=== PATIENT | female | born 1995 | race African-American/Black ===

== ENCOUNTER 2016-09-23 14:29 | Emergency (ER) | payer OTHER ==
[2016-09-23 14:40] VITALS: BP 119/66
== END 2016-09-23 15:44 | disposition left against medical advice (07) ==
LOC: ED 14:29
DX: R51 Headache (principal); Z53.20 Procedure and treatment not carried out because of patient's decision for unspecified reasons
CPT/HCPCS: 99281

== ENCOUNTER → 2016-09-23 16:00 | Emergency (ER) | payer OTHER ==
[~2016-09-23 16:00] MED LIST: Ketorolac INJ* 60 MG/2 ML VIAL IM ONE; Prochlorperazine TAB* 10 MG PO ONE
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
[2016-09-23 20:42] VITALS: BP 111/69
== END | disposition home or self-care (01) ==
LOC: ED 16:00
DX: G44.209 Tension-type headache, unspecified, not intractable (principal); J45.909 Unspecified asthma, uncomplicated
CPT/HCPCS: 96372; 99281; J1885; Q0164

== ENCOUNTER → 2016-10-12 15:39 | Emergency (ER) | payer OTHER ==
[2016-10-12 16:42] LABS: Hematocrit 39 % (35-47); Hemoglobin 12.6 g/dl (12.0-16.0); Mean Corpuscular HGB Conc 32 g/dl (31-36); Mean Corpuscular Hemoglobin 28 pg (27-31); Mean Corpuscular Volume 87 fL (80-97); Mean Platelet Volume 8 um3 (7.4-10.4); Red Blood Count 4.47 10^6/ul (4.0-5.4); Red Cell Distribution Width 14 % (10.5-15)
[2016-10-12 16:58] LABS: Albumin 3.8 g/dL (3.2-5.2); BUN/Creatinine Ratio 18.5 (8-20); Calcium 9.4 mg/dL (8.6-10.3); EGFR African American 113.7 (>60); EGFR Non-African American 88.4 (>60); Globulin 3.4 g/dL (2-4); Potassium 3.6 mmol/L (3.5-5.0); Total Bilirubin 0.3 mg/dL (0.2-1.0); Total Protein 7.2 g/dL (6.4-8.9)
[2016-10-12 17:38] LABS: Urine Bilirubin Negative (Negative); Urine Glucose Negative (Negative); Urine Nitrite Negative (Negative)
[2016-10-12 17:53] LABS: BHCG Quantitative with Reflex 854.3 MIU/ML (0.0-5.0)
[2016-10-12 18:20] LABS: TSH (Thyroid Stimulating Horm) 1.5 mcIU/mL (0.34-5.60)
[2016-10-12 18:33] VITALS: BP 116/55
--- NOTE | 2016-10-12 21:20 | ED ---
Fox Sage Billy, scribed for Gregory Singer MD on 10/12/16 at 1616 . - HPI Summary HPI Summary: Patient is a 21 year-old female coming to [facility] for evaluation of a possible ectopic sent from the [facility], where she had an ultrasound. LMP 09/10/16. A1. No vaginal bleeding or discharge. - History of Current Complaint Chief Complaint: EDUrogenitalProblems Stated Complaint: R/O ECTOPIC Time Seen by Provider: 10/12/16 16:05 Hx Obtained From: Patient Chief Complaint: Other: - Rule out ectopic Timing: Constant Current Severity: None Pain Intensity: 0 Location of Pain: None Character: None Aggravating Factors: Nothing Alleviating Factors: Nothing Associated Signs and Symptoms: Positive: Negative - Allergies/Home Medications Allergies/Adverse Reactions: Allergies Allergy/AdvReac Type Severity Reaction Status Date / Time No Known Allergies Allergy Verified 10/20/15 21:35 PMH/Surg Hx/FS Hx/Imm Hx Endocrine/Hematology History: Denies: Hx Diabetes Cardiovascular History: Denies: Hx Congestive Heart Failure, Hx Hypertension Respiratory History: Reports: Hx Asthma - asthma Infectious Disease History: No Infectious Disease History: Denies: Traveled Outside the [place] in Last 30 Days - Family History Known Family History: Positive: Diabetes - Social History Alcohol Use: Occasionally Hx Substance Use: No Substance Use Type: Reports: None Hx Tobacco Use: No Smoking Status (MU): Never Smoked Tobacco Review of Systems Negative: Fever Negative: Abdominal Pain Negative: discharge All Other Systems Reviewed And Are Negative: Yes Physical Exam - Summary Physical Exam Summary: VITAL SIGNS: Reviewed. GENERAL: Patient is a well-developed and nourished (MALE OR FEMALE) who is lying comfortable in the stretcher. Patient is not in any acute respiratory distress. HEAD AND FACE: No signs of trauma. No ecchymosis, hematomas or skull depressions. No sinus tenderness. EYES: PERRLA, EOMI x 2, No injected conjunctiva, no nystagmus. EARS: Hearing grossly intact. Ear canals and tympanic membranes are within normal limits. MOUTH: Oropharynx within normal limits. NECK: Supple, trachea is midline, no adenopathy, no JVD, no carotid bruit, no c- spine tenderness, neck with full ROM. CHEST: Symmetric, no tenderness at palpation LUNGS: Clear to auscultation bilaterally. No wheezing or crackles. CVS: Regular rate and rhythm, S1 and S2 present, no murmurs or gallops appreciated. ABDOMEN: Soft, non-tender. No signs of distention. No rebound no guarding, and no masses palpated. Bowel sounds are normal. EXTREMITIES: FROM in all major joints, no edema, no cyanosis or clubbing. NEURO: Alert and oriented x 3. No acute neurological deficits. Speech is normal and follows commands. SKIN: Dry and warm - Physical Exam Triage Information Reviewed: Yes Vital Signs On Initial Exam: Initial Vital Signs Temp 97.9 F 10/12/16 15:41 Pulse 87 10/12/16 15:41 Resp 20 10/12/16 15:41 BP 132/59 10/12/16 15:41 Pulse Ox 100 10/12/16 15:41 Vital Signs Reviewed: Yes Diagnostics - Vital Signs Vital Signs Temp Pulse Resp BP Pulse Ox 10/12/16 15:43 97.9 F 95 20 132/59 100 10/12/16 15:41 97.9 F 87 20 132/59 100 - Laboratory Result Diagrams: 10/12/16 16:32 10/12/16 16:32 Lab Statement: Any lab studies that have been ordered have been reviewed, and results considered in the medical decision making process. Re-Evaluation - Re-Evaluation First Eval Re-Evaluation Time: 18:23 Comment: Labs reviewed. Course/Dx - Course Assessment/Plan: Patient is a 21 year-old female coming to [facility] for evaluation of a possible ectopic sent from the [facility], where she had an ultrasound. LMP 09/10/16. A1. No vaginal bleeding or discharge. Test results WNL except for bHCG of 854. UA is negative for UTI. In the ED course, the patient remains stable without any complaints. She has no abdominal or pelvic pain, denies vaginal bleeding or discharge. So I have a very low suspicion for an ectopic with such a low bHCG. I discussed the case with Dr. Braden who also agrees that the patient can be discharged home to follow up in his office in the next 2 days. The patient was given instructions to return to the ED if she developed abdominal pain or vaginal bleeding. She is hemodynamically stable, A&Ox3. - Diagnoses Provider Diagnoses: - Provider Notifications Discussed Care Of Patient With: Dr. Braden (CLINICAL TRIAL DATA MANAGER) at 1810: recommends discharge home. Discharge - Discharge Plan Condition: Stable Disposition: HOME Patient Education Materials: (ED) Referrals: Delvis Dumont MD [Primary Care Provider] - Jordan Braden MD [Medical Doctor] - Additional Instructions: FOLLOW UP WITH DR. BRADEN (CLINICAL TRIAL DATA MANAGER) IN TWO DAYS. The documentation as recorded by the Fox james Billy accurately reflects the service I personally performed and the decisions made by , Grgeory Singer MD.
== END | disposition home or self-care (01) ==
LOC: ED 15:39
DX: Z34.90 Encounter for supervision of normal pregnancy, unspecified, unspecified trimester (principal)
CPT/HCPCS: 36415; 80053; 81003; 83690; 84443; 84702; 85025; 99282

== ENCOUNTER 2016-12-14 12:22 | Emergency (ER) | payer OTHER ==
[2016-12-14] MEDS ORDERED: NS 0.9% 1000 ML* 1,000 ML IV ONE (13:48)
[2016-12-14 14:20] LABS: Hematocrit 39 % (35-47); Hemoglobin 12.7 g/dl (12.0-16.0); Mean Corpuscular HGB Conc 33 g/dl (31-36); Mean Corpuscular Hemoglobin 29 pg (27-31); Mean Corpuscular Volume 90 fL (80-97); Mean Platelet Volume 8 um3 (7.4-10.4); Red Blood Count 4.36 10^6/ul (4.0-5.4); Red Cell Distribution Width 14 % (10.5-15); White Blood Count 9.4 10^3/ul (3.5-10.8)
[2016-12-14 14:22] LABS: Urine Bilirubin Negative (Negative); Urine Glucose Negative (Negative); Urine Nitrite Negative (Negative)
[2016-12-14 14:34] LABS: Albumin 3.8 g/dL (3.2-5.2); BUN/Creatinine Ratio 12.1 (8-20); C Reactive Protein 11.3 mg/L (< 5.00); Calcium 9.4 mg/dL (8.6-10.3); Globulin 3.8 g/dL (2-4); Potassium 3.6 mmol/L (3.5-5.0); Total Bilirubin 0.3 mg/dL (0.2-1.0); Total Protein 7.6 g/dL (6.4-8.9)
--- NOTE | 2016-12-14 15:06 | RAD ---
Indication: 13 weeks 4 days based on September 10, 2016 LMP Comparison: No relevant prior exams available on the [facility] PACS for comparison. Technique: Transabdominal obstetrical ultrasound. Report: Single intrauterine gestation with visualized movement and cardiac activity with heart rate measuring 147 bpm. Unremarkable placenta and qualitatively normal amniotic fluid volume. No perigestational hemorrhage evident. Unremarkable 2.5 x 1.6 x 1.7 cm RIGHT ovary. The LEFT ovary could not be visualized. No extraovarian adnexal region lesions evident. IMPRESSION: Normal-appearing IUP with AUA 13 weeks 6 days based on this exam. Ultrasound SYD June 15, 2017.
--- NOTE | 2016-12-14 15:25 | RAD ---
INDICATION: Right lower quadrant pain. COMPARISON: There are no prior studies available for comparison. TECHNIQUE: Multiple real-time images of the right lower quadrant were obtained using a graded compression technique. FINDINGS: No free intraperitoneal fluid or localized fluid collections are seen. The appendix was not visualized limiting the study. IMPRESSION: THE APPENDIX WAS NOT VISUALIZED LIMITING THE STUDY, RECOMMEND CLINICAL CORRELATION AND CONSIDER A MRI OF THE ABDOMEN AND PELVIS WITHOUT CONTRAST FOR FURTHER EVALUATION.
--- NOTE | 2016-12-14 16:25 | ED ---
Gregory Sage Auryana, scribed for David Jimenez MD on 12/14/16 at 1407 . Abdominal Pain/Female - HPI Summary HPI Summary: 21 year old female presents with abdominal pain starting last night worse since this morning. The pain is constant, located in the central abdomen, and is made worse by palpation, unchanged with food intake. She reports that the pain can become a sharp pain (9/10), but currently she reports that the pain is "just uncomfortable". She also reports a decreased appetite and slight vaginal discharge - seen at [facility] office yesterday - reports normal per exam. She denies any back pain or any burning/pain with urination. Normal BMs per patient. She reports recent stress and is concerned with the health of her baby - 13 weeks , due date 06/17/17 with LMP 09/10/16. PMHx is significant for asthma. - History of Current Complaint Chief Complaint: EDAbdPain Stated Complaint: ABD PAIN/13 WEEKS Time Seen by Provider: 12/14/16 13:32 Hx Obtained From: Patient Hx Last Menstrual Period: 09/10/16 ?: Yes Onset/Duration: Gradual Onset, Lasting Hours - last night, Still Present Timing: Constant Severity Initially: Mild Severity Currently: Mild Pain Intensity: 4 Pain Scale Used: 0-10 Numeric Location: Other - central abd Radiates: No Character: Sharp - can become, Other: - reports "uncomfortable" Aggravating Factor(s): Other: - palpation Associated Signs and Symptoms: Positive: Decreased Appetite, Vaginal Discharge. Negative: Fever, Back Pain, Constipation, Urinary Symptoms, Vaginal Bleeding Allergies/Adverse Reactions: Allergies Allergy/AdvReac Type Severity Reaction Status Date / Time No Known Allergies Allergy Verified 10/20/15 21:35 PMH/Surg Hx/FS Hx/Imm Hx Endocrine/Hematology History: Denies: Hx Diabetes Cardiovascular History: Denies: Hx Congestive Heart Failure, Hx Hypertension Respiratory History: Reports: Hx Asthma - asthma Infectious Disease History: Denies: Traveled Outside the [place] in Last 30 Days - Family History Known Family History: Positive: Diabetes - Social History Alcohol Use: Occasionally Hx Substance Use: No Substance Use Type: Reports: None Hx Tobacco Use: No Smoking Status (MU): Never Smoked Tobacco Review of Systems Constitutional: Negative Negative: Fever Eyes: Negative ENT: Negative Cardiovascular: Negative Respiratory: Negative Positive: Abdominal Pain, Other - decreased appetite Positive: discharge - vaginal . Negative: burning, pain Musculoskeletal: Negative Negative: Other - no back pain Skin: Negative Neurological: Negative Psychological: Normal All Other Systems Reviewed And Are Negative: Yes Physical Exam - Summary Physical Exam Summary: General: well-appearing, no acute pain distress Skin: warm, color reflects adequate perfusion, dry Head: normal Eyes: EOMI, RICCO ENT: normal Neck: supple, nontender Respiratory: CTA, breath sounds present Cardiovascular: RRR Abdomen: soft, mild suprapubic tenderness Bowel: present Musculoskeletal: normal, strength/ROM intact Neurological: normal, sensory/motor intact, A&O x3 Psychological: affect/mood appropriate Triage Information Reviewed: Yes Vital Signs On Initial Exam: Initial Vitals Temp Pulse Resp BP Pulse Ox 97.8 F 92 20 115/59 99 12/14/16 12:24 12/14/16 12:24 12/14/16 12:24 12/14/16 12:24 12/14/16 12:24 Vital Signs Reviewed: Yes Diagnostics - Vital Signs Vital Signs Temp Pulse Resp BP Pulse Ox 12/14/16 12:24 97.8 F 92 20 115/59 99 - Laboratory Lab Results: Lab Results 12/14/16 12/14/16 12/14/16 Range/Units 14:05 14:05 14:05 WBC 9.4 (3.5-10.8) 10^3/ul RBC 4.36 (4.0-5.4) 10^6/ul Hgb 12.7 (12.0-16.0) g/dl Hct 39 (35-47) % MCV 90 (80-97) fL MCH 29 (27-31) pg MCHC 33 (31-36) g/dl RDW 14 (10.5-15) % Plt Count 276 (150-450) 10^3/ul MPV 8 (7.4-10.4) um3 Neut % (Auto) 70.7 (38-83) % Lymph % (Auto) 20.5 L (25-47) % [place] % (Auto) 6.6 (1-9) % Eos % (Auto) 1.9 (0-6) % Baso % (Auto) 0.3 (0-2) % Absolute Neuts (auto) 6.7 (1.5-7.7) 10^3/ul Absolute Lymphs (auto) 1.9 (1.0-4.8) 10^3/ul Absolute Monos (auto) 0.6 (0-0.8) 10^3/ul Absolute Eos (auto) 0.2 (0-0.6) 10^3/ul Absolute Basos (auto) 0 (0-0.2) 10^3/ul Absolute Nucleated RBC 0 10^3/ul Nucleated RBC % 0 Sodium 133 (133-145) mmol/L Potassium 3.6 (3.5-5.0) mmol/L Chloride 104 (101-111) mmol/L Carbon Dioxide 22 (22-32) mmol/L Anion Gap 7 (2-11) mmol/L BUN 8 (6-24) mg/dL Creatinine 0.66 (0.51-0.95) mg/dL Est GFR ( Amer) 144.0 (>60) Est GFR (Non-Af Amer) 112.0 (>60) BUN/Creatinine Ratio 12.1 (8-20) Glucose 85 (70-100) mg/dL Lactic Acid 0.8 (0.5-2.0) mmol/L Calcium 9.4 (8.6-10.3) mg/dL Total Bilirubin 0.30 (0.2-1.0) mg/dL AST 12 L (13-39) U/L ALT 10 (7-52) U/L Alkaline Phosphatase 41 (34-104) U/L C-Reactive Protein 11.30 H (< 5.00) mg/L Total Protein 7.6 (6.4-8.9) g/dL Albumin 3.8 (3.2-5.2) g/dL Globulin 3.8 (2-4) g/dL Albumin/Globulin Ratio 1.0 (1-3) Lipase 14 (11.0-82.0) U/L Beta HCG, Quant 75850.00 mIU/mL Urine Color Urine Appearance Urine pH (5-9) Ur Specific [place] (1.010-1.030) Urine Protein (Negative) Urine Ketones (Negative) Urine Blood (Negative) Urine Nitrate (Negative) Urine Bilirubin (Negative) Urine Urobilinogen (Negative) Ur Leukocyte Esterase (Negative) Urine Glucose (Negative) Urine Ascorbic Acid (Negative) 12/14/16 Range/Units 14:05 WBC (3.5-10.8) 10^3/ul RBC (4.0-5.4) 10^6/ul Hgb (12.0-16.0) g/dl Hct (35-47) % MCV (80-97) fL MCH (27-31) pg MCHC (31-36) g/dl RDW (10.5-15) % Plt Count (150-450) 10^3/ul MPV (7.4-10.4) um3 Neut % (Auto) (38-83) % Lymph % (Auto) (25-47) % [place] % (Auto) (1-9) % Eos % (Auto) (0-6) % Baso % (Auto) (0-2) % Absolute Neuts (auto) (1.5-7.7) 10^3/ul Absolute Lymphs (auto) (1.0-4.8) 10^3/ul Absolute Monos (auto) (0-0.8) 10^3/ul Absolute Eos (auto) (0-0.6) 10^3/ul Absolute Basos (auto) (0-0.2) 10^3/ul Absolute Nucleated RBC 10^3/ul Nucleated RBC % Sodium (133-145) mmol/L Potassium (3.5-5.0) mmol/L Chloride (101-111) mmol/L Carbon Dioxide (22-32) mmol/L Anion Gap (2-11) mmol/L BUN (6-24) mg/dL Creatinine (0.51-0.95) mg/dL Est GFR ( Amer) (>60) Est GFR (Non-Af Amer) (>60) BUN/Creatinine Ratio (8-20) Glucose (70-100) mg/dL Lactic Acid (0.5-2.0) mmol/L Calcium (8.6-10.3) mg/dL Total Bilirubin (0.2-1.0) mg/dL AST (13-39) U/L ALT (7-52) U/L Alkaline Phosphatase (34-104) U/L C-Reactive Protein (< 5.00) mg/L Total Protein (6.4-8.9) g/dL Albumin (3.2-5.2) g/dL Globulin (2-4) g/dL Albumin/Globulin Ratio (1-3) Lipase (11.0-82.0) U/L Beta HCG, Quant mIU/mL Urine Color Yellow Urine Appearance Clear Urine pH 7.0 (5-9) Ur Specific [place] 1.012 (1.010-1.030) Urine Protein Negative (Negative) Urine Ketones Trace H (Negative) Urine Blood Negative (Negative) Urine Nitrate Negative (Negative) Urine Bilirubin Negative (Negative) Urine Urobilinogen Negative (Negative) Ur Leukocyte Esterase Negative (Negative) Urine Glucose Negative (Negative) Urine Ascorbic Acid * H (Negative) Result Diagrams: 12/14/16 14:05 12/14/16 14:05 Lab Statement: Any lab studies that have been ordered have been reviewed, and results considered in the medical decision making process. - Additional Comments Diagnostic Additional Comments: US PREG COMPLETE<14WKS: IMPRESSION: Normal-appearing IUP with AUA 13 weeks 6 days based on this exam. Ultrasound SYD June 15, 2017. US ABDOMEN LIMITED IMPRESSION: THE APPENDIX WAS NOT VISUALIZED LIMITING THE STUDY, RECOMMEND CLINICAL CORRELATION AND CONSIDER A MRI OF THE ABDOMEN AND PELVIS WITHOUT CONTRAST FOR FURTHER EVALUATION. Re-Evaluation - Re-Evaluation First Eval Re-Evaluation Time: 15:54 - discussed imaging (US) Abdominal Pain Fem Course/Dx - Course Course Of Treatment: NO CRITICAL CARE TIME. DISCUSSED RESULTS WITH PATIENT. DISCUSSED WITH DR HOLLEY. AT DISCHARGE, DISCOMFORT IS ON THE LEFT SIDE OF THE ABD AND IS MILD. NO RLQ TENDERNESS. NO FEVER, NL WBC, NO UTI. [facility] HOME STABLE, F/U OBGYN, RETURN IF WORSE. - Diagnoses Provider Diagnoses: Abdominal pain in - Provider Notifications Discussed Care Of Patient With: Shayna Holley Time Discussed With Above Provider: 16:20 Discharge - Discharge Plan Condition: Stable Disposition: HOME Patient Education Materials: Abdominal Pain in (ED) Referrals: Delvis Dumont MD [Primary Care Provider] - [facility] [Provider Group] Additional Instructions: FOLLOW UP WITH YOUR OBGYN. CALL TODAY FOR FOLLOW UP. RETURN TO THE EMERGENCY DEPARTMENT FOR ANY WORSENING OF YOUR CONDITION; PAIN, FEVER, VOMITING, YOU FEEL ILL, PAIN IN THE RIGHT LOWER ABDOMEN (WHERE THE APPENDIX IS), VAGINAL BLEEDING OR QUESTIONS OR CONCERNS. The documentation as recorded by the scribe, DeChick,Auryana accurately reflects the service I personally performed and the decisions made by me, David Jimenez MD.
[2016-12-14 16:46] VITALS: BP 93/55
== END 2016-12-14 16:46 | disposition home or self-care (01) ==
LOC: ED 12:22
DX: O26.891 Other specified pregnancy related conditions, first trimester (principal); R10.9 Unspecified abdominal pain; Z3A.13 13 weeks gestation of pregnancy; J45.909 Unspecified asthma, uncomplicated
CPT/HCPCS: 36415; 76705; 76801; 80053; 81003; 83605; 83690; 84702; 85025; 86140; 96360; 99282

== ENCOUNTER 2017-01-10 11:21 | Emergency (ER) | payer OTHER ==
[2017-01-10] MEDS ORDERED: Albuterol/Ipratropium NEB.SOL* Albuterol 2.5 MG/Ipratropium 0.5 MG 3 ML INH ONE (11:59)
--- NOTE | 2017-01-10 11:59 | ED ---
Luis Felipe Sage Alfonso, scribed for Olinda Ware MD on 01/10/17 at 1141 . Syncope/Near Syncope - HPI Summary HPI Summary: This patient is a 21 year old F presenting to [facility] with a chief complaint of a syncopal episode earlier today at work. The patient was standing while talking to my friend then a couple seconds later they were picking me up. Pt states felt slightly lightheaded prior to episode and like may pass out. Pt without any pain no injury. Pt states she has had little to eat - only a cookie today. The patient rates the pain 0/10 in severity. Symptoms aggravated by nothing and alleviated by spontaneous resolution. No injuries. Patient reports sore throat, vaginal discharge (since finding out she was ), and some wheezing intermittently resolved with MDI. Patient denies CP, rash, urinary symptoms, diarrhea, dizziness, lightheadedness, ear pain, and sinus pressure. No complaint at time of evaluation. She states her daughter has scarlet fever per diagnosis yesterday. Pt without complaints at time of eval. no cp, sob. Pt states does have asthma and uses nebulizers at bedtime. Pt has ventolin during the day intermittently. . PMHx of asthma. Patients medication reviewed this visit. - History Of Current Complaint Chief Complaint: EDSyncope Time Seen by Provider: 01/10/17 11:32 Hx Obtained From: Patient Onset/Duration: Sudden Onset, Lasting Hours - earlier today, Resolved Timing: Constant Context: Witnessed Activity At Onset: Other - standing talkin with friend at work. Aggravating Factor(s): Nothing Alleviating Factor(s): Spontaneous Resolution Associated Signs And Symptoms: Other - Patient reports sore throat, vaginal discharge (since finding out she was ), and SOB (asthma and not while it happened). Patient denies CP, rash, urinary symptoms, diarrhea, dizziness, lightheadedness, ear pain, and sinus pressure. - Allergies/Home Medications Allergies/Adverse Reactions: Allergies Allergy/AdvReac Type Severity Reaction Status Date / Time No Known Allergies Allergy Verified 01/10/17 11:25 PMH/Surg Hx/FS Hx/Imm Hx Previously Healthy: Yes Endocrine/Hematology History: Denies: Hx Diabetes Cardiovascular History: Denies: Hx Congestive Heart Failure, Hx Hypertension Respiratory History: Reports: Hx Asthma - asthma Infectious Disease History: Denies: Traveled Outside the [place] in Last 30 Days - Family History Known Family History: Positive: Diabetes - Social History Alcohol Use: Occasionally Hx Substance Use: No Substance Use Type: Reports: None Hx Tobacco Use: No Smoking Status (MU): Never Smoked Tobacco Review of Systems Constitutional: Negative Eyes: Negative ENT: Negative Cardiovascular: Negative Respiratory: Negative Gastrointestinal: Negative Genitourinary: Negative Musculoskeletal: Negative Skin: Negative Positive: Syncope Psychological: Normal All Other Systems Reviewed And Are Negative: Yes Physical Exam Triage Information Reviewed: Yes Vital Signs On Initial Exam: Initial Vitals Temp Pulse Resp BP Pulse Ox 98 F 86 16 117/67 100 01/10/17 11:25 01/10/17 11:25 01/10/17 11:25 01/10/17 11:25 01/10/17 11:25 Vital Signs Reviewed: Yes Appearance: Positive: Well-Appearing, No Pain Distress Skin: Positive: Warm, Skin Color Reflects Adequate Perfusion Head/Face: Positive: Normal Head/Face Inspection Eyes: Positive: Normal, EOMI, RICCO ENT: Positive: Normal ENT inspection, Pharynx normal, TMs normal, Other - lips dry, mm pasty. Negative: Pharyngeal erythema, Tonsillar swelling, Tonsillar exudate Neck: Positive: Supple, Nontender, No Lymphadenopathy Respiratory/Lung Sounds: Positive: Clear to Auscultation, Breath Sounds Present , Wheezes - few scattered wheeze, no retractions Cardiovascular: Positive: Normal, RRR, Other - no bruits b/l. Negative: Murmur Abdomen Description: Positive: Nontender, No Organomegaly, Soft Bowel Sounds: Positive: Present Musculoskeletal: Positive: Normal Neurological: Positive: Normal, Sensory/Motor Intact, Alert, Oriented to Person Place, Time Psychiatric: Positive: Normal AVPU Assessment: Alert - [place] Coma Scale Best Eye Response: 4 - Spontaneous Best Motor Response: 6 - Obeys Commands Best Verbal Response: 5 - Oriented Diagnostics - Vital Signs Vital Signs Temp Pulse Resp BP Pulse Ox 01/10/17 11:25 98 F 86 16 117/67 100 - Laboratory Result Diagrams: 01/10/17 11:55 01/10/17 11:55 Lab Statement: Any lab studies that have been ordered have been reviewed, and results considered in the medical decision making process. - EKG 1135 Cardiac Rate: NL - BPM 86 EKG Rhythm: Sinus Rhythm EKG Interpretation: NAD Re-Evaluation - Re-Evaluation First Eval Comment: Pt states feels better following neb. Pt drinking po, IV infiltrated. will order food tray. await labs. anticipate discharge. Pt has MDI and nebs at home Course/Dx Assessment/Plan: Pt presents with episode of syncope. Pt is and has had minimal po today. Pt with scattered wheeze - asthmatic. No distress. Will check labs, neb, IVF, po reassess, EKG. Pt comfortable and in agreement with plan - Diagnoses Provider Diagnoses: Syncope, Dehydration Discharge - Discharge Plan Condition: Stable Disposition: HOME Patient Education Materials: Dehydration (ED), Syncope (ED) Forms: *Work Release Referrals: Delvis Dumont MD [Primary Care Provider] - Additional Instructions: - stay well hydrated. Drink plenty of non-alcoholic, non-caffinated beverages - eat and drink regular, healthy meals - It is recommended you use your inhaler or nebulizer, every 4hours, today and tomorrow. Then every 6 hours as needed - Contact your primary doctor as well as your obstetrician/gynecologist doctor to schedule a follow- up appointment The documentation as recorded by the Luis Felipe james Alfonso accurately reflects the service I personally performed and the decisions made by me, Olinda Ware MD.
[2017-01-10 12:16] LABS: Hematocrit 38 % (35-47); Hemoglobin 12.7 g/dl (12.0-16.0); Mean Corpuscular HGB Conc 33 g/dl (31-36); Mean Corpuscular Hemoglobin 29 pg (27-31); Mean Corpuscular Volume 89 fL (80-97); Mean Platelet Volume 9 um3 (7.4-10.4); Red Blood Count 4.31 10^6/ul (4.0-5.4); Red Cell Distribution Width 14 % (10.5-15); White Blood Count 8.8 10^3/ul (3.5-10.8)
[2017-01-10 12:31] LABS: Albumin 3.6 g/dL (3.2-5.2); BUN/Creatinine Ratio 12.9 (8-20); Calcium 9.3 mg/dL (8.6-10.3); EGFR African American 154.8 (>60); EGFR Non-African American 120.4 (>60); Globulin 3.6 g/dL (2-4); Magnesium 1.9 mg/dL (1.9-2.7); Potassium 3.8 mmol/L (3.5-5.0); Total Bilirubin 0.3 mg/dL (0.2-1.0); Total Protein 7.2 g/dL (6.4-8.9)
[2017-01-10] MEDS ORDERED: NS 0.9% 1000 ML* 1,000 ML IV ONE (12:34)
[2017-01-10 13:20] LABS: Urine Bilirubin Negative (Negative); Urine Glucose Negative (Negative); Urine Nitrite Negative (Negative)
[2017-01-10 14:55] VITALS: BP 92/77
== END 2017-01-10 14:55 | disposition home or self-care (01) ==
LOC: ED 11:21
DX: E86.0 Dehydration (principal); J02.9 Acute pharyngitis, unspecified; R55 Syncope and collapse
CPT/HCPCS: 36415; 80053; 81003; 83735; 85025; 87651; 93005; 99283; A9270-GY

== ENCOUNTER 2017-06-13 06:57 | Inpatient (IN) | payer OTHER ==
[2017-06-13] MEDS ORDERED: Buffered Lidocaine 0.9% SYRIN* 5 ML/SYR SYRINGE ONE (08:10)
[2017-06-13 08:58] LABS: ABS Basophils 0 10^3/ul (0-0.2); ABS Eosinophils 0.1 10^3/ul (0-0.6); ABS Lymphocytes 1.6 10^3/ul (1.0-4.8); ABS Monocytes 0.6 10^3/ul (0-0.8); ABS Neutrophils 8.8 10^3/ul (1.5-7.7); ABS Nucleated RBC 0 10^3/ul; Eosinophil % 0.8 % (0-6); Hematocrit 35 % (35-47); Hemoglobin 11.1 g/dl (12.0-16.0); Lymphocyte % 14.1 % (25-47); Mean Corpuscular HGB Conc 32 g/dl (31-36); Mean Corpuscular Hemoglobin 27 pg (27-31); Mean Corpuscular Volume 83 fL (80-97); Mean Platelet Volume 10 um3 (7.4-10.4); Nucleated Red Blood Cells % 0; Platelet Count 157 10^3/ul (150-450); Red Blood Count 4.19 10^6/ul (4.0-5.4); Red Cell Distribution Width 16 % (10.5-15); White Blood Count 11.2 10^3/ul (3.5-10.8)
[2017-06-13] MEDS ORDERED: OBEPIDURAL* 250 ML EPIDURAL ONE (09:31)
[2017-06-13] MEDS ORDERED: ROPIVACAINE 5 MG/ML 30 ML BTL (0.5%) ONE (10:06)
[2017-06-13] MEDS ORDERED: Oxytocin in LR* 20 UNITS/1,000 ML BAG IVPB ONE (11:00)
[2017-06-13] MEDS ORDERED: Glycerin ADULT SUPP PR PRN (11:07)
[2017-06-13] MEDS ORDERED: Dibucaine 1% 28.35 GM TUBE PR PRN (11:07)
[2017-06-13] MEDS ORDERED: Acetaminophen TAB* 325 MG PO PRN (11:07)
[2017-06-13] MEDS ORDERED: Witch Hazel PAD* JAR TOPICAL PRN (11:07)
[2017-06-13] MEDS ORDERED: Albuterol HFA INHALER* 8 gm MDI INH PRN (11:33)
[2017-06-13] MEDS ORDERED: Oxytocin in LR* 20 UNITS/1,000 ML BAG IVPB SCH (12:00)
[2017-06-13] MEDS: Docusate CAP* 100 MG PO SCH ×3 (14:57→20:49)
[2017-06-13] MEDS: Ibuprofen TAB* 600 MG PO PRN (15:38)
[2017-06-14] MEDS: Ibuprofen TAB* 600 MG PO PRN ×3 (03:53→21:06)
[2017-06-14] MEDS: Docusate CAP* 100 MG PO SCH ×4 (07:17→21:07)
[2017-06-14 08:46] LABS: Hematocrit 34 % (35-47); Hemoglobin 10.8 g/dl (12.0-16.0); Mean Corpuscular HGB Conc 32 g/dl (31-36); Mean Corpuscular Hemoglobin 27 pg (27-31); Mean Corpuscular Volume 83 fL (80-97); Mean Platelet Volume 11 um3 (7.4-10.4); Platelet Count 138 10^3/ul (150-450); Red Blood Count 4.05 10^6/ul (4.0-5.4); Red Cell Distribution Width 16 % (10.5-15); White Blood Count 13.3 10^3/ul (3.5-10.8)
[2017-06-14] MEDS ORDERED: Ferrous Gluconate TAB* 324 MG TAB PO SCH (09:00)
[2017-06-15 07:54] VITALS: BP 124/84
[2017-06-15] MEDS: Docusate CAP* 100 MG PO SCH (08:01)
[2017-06-15] MEDS: Ibuprofen TAB* 600 MG PO PRN (08:01)
== END 2017-06-15 12:09 | disposition home or self-care (01) | DRG 560 ==
LOC: MCHOBOUT 06:57 → MCHOB 08:00
PROVIDERS: ADMIT Midwife; ATTEND Midwife
PROC: 10E0XZZ Delivery of Products of Conception, External Approach (ICD-10-PCS; principal; 2017-06-13)
PROC: 10907ZC Drainage of Amniotic Fluid, Therapeutic from Products of Conception, Via Natural or Artificial Opening (ICD-10-PCS; 2017-06-13)
PROC: 4A1HXCZ Monitoring of Products of Conception, Cardiac Rate, External Approach (ICD-10-PCS; 2017-06-13)
DX: O99.52 Diseases of the respiratory system complicating childbirth (principal); J45.909 Unspecified asthma, uncomplicated; Z3A.39 39 weeks gestation of pregnancy; Z37.0 Single live birth
CPT/HCPCS: 36415; 85025; 85027; 86850; 86900; 86901; A9270-GY; J2795

== ENCOUNTER 2018-08-12 15:10 | Emergency (ER) | payer OTHER ==
--- NOTE | 2018-08-12 15:15 | UC ---
Back Pain HPI - HPI Summary HPI Summary: Patient is a 23 year old female , who present today to the urgent care with back pain that started yesterday. She was not able to sleep at night. Pain is localized in the lumbar area without any radiation. pain is worse with movement, bending is better than extension. no prior episodes and she denies any specific injury. 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 Took Tylenol last night. Denies any abdominal pain , nausea or vomiting , diarrhea or constipation. Denies any radicular symptoms, numbness , tingling , incontinence, saddle anesthesia , motor or sensory disturbance. - History of Current Complaint Stated Complaint: BACK PAIN Time Seen by Provider: 08/12/18 15:12 Hx Last Menstrual Period: 09/10/16 ?: No - on nexplanon - Allergies/Home Medications Allergies/Adverse Reactions: Allergies Allergy/AdvReac Type Severity Reaction Status Date / Time No Known Allergies Allergy Verified 08/12/18 15:23 Home Medications: Home Medications Etonogestrel [Nexplanon] 1 implant TOPICAL MONTHLY 08/12/18 [History Confirmed 08/12/18] PMH/Surg Hx/FS Hx/Imm Hx - Additional Past Medical History Additional PMH: asthma, on albuterol inhaler Previously Healthy: Yes - Surgical History Surgical History: None - Family History Known Family History: Positive: Diabetes - Social History Alcohol Use: None Substance Use Type: None Smoking Status (MU): Never Smoked Tobacco - Immunization History Most Recent Influenza Vaccination: 05/17/17 Most Recent Pneumonia Vaccination: unknown Review of Systems All Other Systems Reviewed And Are Negative: Yes Constitutional: Positive: Negative Skin: Positive: Negative Eyes: Positive: Negative ENT: Positive: Negative Respiratory: Positive: Negative Cardiovascular: Positive: Negative Gastrointestinal: Positive: Negative Genitourinary: Positive: Negative Motor: Positive: Negative Neurovascular: Positive: Negative Musculoskeletal: Positive: Arthralgia - low back pain, Decreased ROM - painful range of motion of lumbar spine, Myalgia - lumbar paraspinal muscles Neurological: Positive: Negative Psychological: Positive: Negative Is Patient Immunocompromised?: No Physical Exam - Summary Physical Exam Summary: Physical Exam: Const: Appears well. No signs of apparent distress present. Alert and oriented x 3. Musculo: Walks with a normal gait. Head/Face: Atraumatic, normocephalic on inspection. Eyes: EOMI and PERRLA in both eyes. Conjunctivae clear ENT: Hearing normal, Respiratory: Respirations are unlabored. CVS: Regular rate and Rhythm, S1S2 normal , no murmurs identified. Extremities: Peripheral circulation is grossly normal. Pulses 2+ Abdomen : Soft non tender Spine: No loss of the normal lumbar lordosis or step-off. there is tenderness to palpation at the L3-L4 and L4-L5 in midline and bilateral paraspinal muscle area. No bilateral SI joint tenderness noted. No gluteal muscle tenderness noted. Stability: No obvious instability. Strength: Flexion, extension, left rotation, left lateral bending, right lateral bending and right rotation strength is intact. ROM: Limited and painful range of motion with bending/flexion to 60, extension and side bending is full Special Tests: Straight leg raise is negative bilaterally. Hip: Insp/Palp: Normal to inspection and palpation. Strength: 5/5 bilaterally. Normal muscle tone bilaterally. ROM: Bilateral hips: full ROM - internal and external rotation, Neg BENJA and FADIR bilaterally Thighs: No swelling bilaterally in the lower extremities. No tenderness of the greater trochanter bilaterally. Skin: No scars, rashes, lesions or ecchymosis. Neuro: Sensation intact to light touch. Motor and sensory intact. Reflexes: Left DTR's are intact. Right DTR's are intact. Toes downgoing. Coordination normal. Distal pulses intact. Triage Information Reviewed: Yes Vital Signs Reviewed: Yes Back Pain Course/Dx - Course Course Of Treatment: During the visit today, we discussed the findings which appeared to be consistent with lumbar strain and muscle spasm. NSAIDs and muscle relaxant E prescribed today. No red flags on exam today.she was given 1 dose of ibuprofen 600 mg in the clinic today.. she will follow with her primary care doctor if no better in a week's time. Patient expressed understanding . - Differential Dx/Diagnosis Provider Diagnosis: Lumbar strain Discharge - Sign-Out/Discharge Documenting (check all that apply): Patient Departure All imaging exams completed and their final reports reviewed: No Studies - Discharge Plan Condition: Stable Disposition: HOME Prescriptions: Cyclobenzaprine TAB* [Flexeril 10 MG TAB*] 10 mg PO BEDTIME 7 Days #7 tab Naproxen [Naproxen 500 mg tab] 500 mg PO BID PRN 7 Days #14 tablet.dr SIMENTAL Reason: Pain Patient Education Materials: Low Back Strain (ED), Core Strengthening Exercises (GEN), Lower Back Exercises (ED) Forms: *Work Release Referrals: Delvis Dumont MD [Primary Care Provider] - Additional Instructions: Please start taking the medication as prescribed to the pharmacy . Follow up with your primary care doctor in 1 week if still symptomatic. Patients blood pressure slightly high in Urgent care today in prehypertensive range , plan follow up with PCP for better control Return to Urgent care / ER if symptoms get worse. - Billing Disposition and Condition Condition: STABLE Disposition: Home
[2018-08-12 15:23] VITALS: BP 130/80
[2018-08-12] MEDS ORDERED: Ibuprofen TAB* 600 MG PO ONE (15:36)
== END 2018-08-12 16:02 | disposition home or self-care (01) ==
LOC: UCEAST 15:10
DX: S39.012A Strain of muscle, fascia and tendon of lower back, initial encounter (principal); J45.909 Unspecified asthma, uncomplicated; Z79.51 Long term (current) use of inhaled steroids; X58.XXXA Exposure to other specified factors, initial encounter; Y92.9 Unspecified place or not applicable
CPT/HCPCS: 99212; A9270-GY; G0463

== ENCOUNTER 2019-03-16 15:33 | Emergency (ER) | payer OTHER ==
[2019-03-16 15:57] VITALS: BP 122/62
--- NOTE | 2019-03-16 16:13 | UC ---
Minor Trauma HPI - HPI Summary HPI Summary: Patient is a 24-year-old female presenting with sister for headache and nausea 2 days. She states she hit her head but refused to provide information as to how she hit her head. She admitted that she hit the back of her head but provides no other details. Denies bleeding. Denies LOC, vomiting, confusion. She notes right sided "face pressure"and tension-like headache. Denies weakness and difficulty walking. Denies any numbness and tingling. Denies changes in vision and photophobia. - History of Current Complaint Chief Complaint: UCHeadache Stated Complaint: HEADACHE, NAUSEOUS Hx Obtained From: Patient Hx Last Menstrual Period: [id number] Severity Currently: Moderate Pain Intensity: 7 - Allergies/Home Medications Allergies/Adverse Reactions: Allergies Allergy/AdvReac Type Severity Reaction Status Date / Time No Known Allergies Allergy Verified 03/16/19 15:57 Home Medications: Home Medications Cetirizine* [ZyrTEC 10 MG TAB*] 10 mg PO DAILY 03/16/19 [History Confirmed 03/16] Ferrous Sulfate 325 mg PO DAILY 03/16/19 [History Confirmed 03/16/19] PMH/Surg Hx/FS Hx/Imm Hx - Surgical History Surgical History: None - Family History Known Family History: Positive: Diabetes - Social History Alcohol Use: Occasionally Substance Use Type: None Smoking Status (MU): Never Smoked Tobacco - Immunization History Most Recent Influenza Vaccination: 05/17/17 Most Recent Pneumonia Vaccination: unknown Review of Systems All Other Systems Reviewed And Are Negative: Yes Constitutional: Positive: Fatigue. Negative: Fever, Chills Eyes: Positive: Negative. Negative: Blurred Vision, Diplopia, Eye Redness, Photophobia ENT: Negative: Epistaxis, Ear Ache, Sinus Pain/Tenderness Respiratory: Positive: Negative. Negative: Shortness Of Breath, Cough Cardiovascular: Positive: Negative. Negative: Palpitations, Chest Pain Gastrointestinal: Positive: Nausea. Negative: Vomiting Motor: Negative: Weakness Neurovascular: Negative: Decreased Sensation Musculoskeletal: Positive: Negative Neurological: Positive: Headache. Negative: Weakness, Paresthesia, Numbness Psychological: Positive: Negative Physical Exam Triage Information Reviewed: Yes Appearance: Well-Appearing, No Pain Distress, Well-Nourished, Other: - Patient laughing and interacting with sister Vital Signs: Initial Vital Signs Temp 98.3 F 03/16/19 15:51 Pulse 86 03/16/19 15:51 Resp 20 03/16/19 15:51 BP 122/62 03/16/19 15:51 Pulse Ox 100 03/16/19 15:51 Vital Signs Reviewed: Yes Eyes: Positive: Conjunctiva Clear, Other: - PERRLA. EOM intact. no edema or ecchymosis around eyes ENT Exam: Normal ENT: Positive: Hearing grossly normal, Pharynx normal, TMs normal - no drainage from ears, Uvula midline. Negative: Pharyngeal erythema, Nasal congestion, Nasal drainage, TM bulging, TM dull, TM red, Tonsillar swelling, Tonsillar exudate, Trismus, Muffled voice, Hoarse voice, Sinus tenderness Neck exam: Normal Neck: Positive: Supple, Nontender, No Lymphadenopathy Respiratory Exam: Normal Respiratory: Positive: Lungs clear, Normal breath sounds, No respiratory distress. Negative: Crackles, Rhonchi, Stridor, Wheezing Cardiovascular Exam: Normal Cardiovascular: Positive: RRR. Negative: Tachycardia, Bradycardia Neurological Exam: Normal, Other - Cranial nerves II-XII intact. negative romberg. negative finger to nose testing. normal gait. Neurological: Positive: Alert, Muscle Tone Normal. Negative: Fatigued, Lethargic, Unresponsive, Abnormal Muscle Tone Psychological: Positive: Decreased Age Appropriate Behavior Skin Exam: Normal, Other - negative kincaid sign. no erythema, abrasion, contusion, or eccymosis of scalp noted where patient states she hit her head. Minor Trauma Course/Dx - Course Course Of Treatment: Used [place] CT head rule to r/o CT scan. Patient VS and neuro exam normal. Discussed with patient probable minor concussion based on limited history and normal PE findings. I educated patient on brain rest and symptomatic treatment. Instructed to follow up with PCP if symptoms do not begin to resolve within 2-3 days. Instructed to go to ED if symptoms worsen. Patient voiced understanding and agreed with treatment plan. - Differential Dx/Diagnosis Provider Diagnosis: Concussion Discharge ED - Sign-Out/Discharge Documenting (check all that apply): Patient Departure All imaging exams completed and their final reports reviewed: No Studies - Discharge Plan Condition: Stable Disposition: HOME Patient Education Materials: Concussion (ED) Forms: *Work Release Referrals: Delvis Dumont MD [Primary Care Provider] - If Needed Additional Instructions: As discussed, it is likely you have a minor concussion. Limit screen time, reading, and other activities that may strain your brain until symptoms have resolved. Get plenty of rest. You may continue to take tylenol and/or ibuprofen for pain relief. Follow up with your PCP if your symptoms do not begin to resolve within the next 2-3 days. Go to the emergency room if you experience vision changes, seizures, severe headache, confusion, fever, vomiting, weakness, or difficulty walking. - Billing Disposition and Condition Condition: STABLE Disposition: Home - Attestation Statements Provider Attestation: Per institutional requirements, I have reviewed the chart, however, I was not consulted specifically or made aware of this patient by the midlevel provider. I did not personally evaluate, interact with , or disposition this patient.
== END 2019-03-16 16:48 | disposition home or self-care (01) ==
LOC: UCEAST 15:33
DX: S06.0X9A Concussion with loss of consciousness of unspecified duration, initial encounter (principal); R53.83 Other fatigue; X58.XXXA Exposure to other specified factors, initial encounter; Y92.9 Unspecified place or not applicable
CPT/HCPCS: 99211; G0463